=== PATIENT | female | born 1975 | race Caucasian/White ===

== ENCOUNTER 2020-10-07 14:10 | Outpatient (CLI) | payer OTHER, SELFPAY ==
--- NOTE | 2020-10-07 14:21 | MM_ITS ---
WS: [id number] BILATERAL DIGITAL SCREENING MAMMOGRAM WITH CAD CLINICAL INFORMATION: SCREENING HISTORY: Screening mammogram. No current complaints. COMPARISON: None. TECHNIQUE: Bilateral CC and MLO. FINDINGS: Bilateral breast implants. Breast implants appear mammographically intact. The breast are composed of heterogeneous tissue, which can limit the detection of small underlying ma ss lesions. No suspicious focal mass, asymmetry, calcifications, or architectural distortion. No evid ence of malignancy. A few punctate calcifications left breast. MM/[id number] IMPRESSION: BI-RADS: 2-Benign FOLLOW UP: 1 Year Follow-up Recommend return to annual screening mammography.
== END 2020-10-07 14:11 | disposition home or self-care (01) ==
LOC: RADSHAW 14:14
PROVIDERS: PCP Family Medicine; Visit Provider Family Medicine
DX: Z12.31 Encounter for screening mammogram for malignant neoplasm of breast (principal)
CPT/HCPCS: 77067

== ENCOUNTER → 2023-08-15 12:25 | Outpatient (BNVA) | payer OTHER, SELFPAY | PROVIDERS: PCP Family Medicine; Visit Provider Nurse Practitioner | DX: J02.9 Acute pharyngitis, unspecified (principal) | CPT/HCPCS: 87880 ==